=== PATIENT | female | born 1940 | race Caucasian/White ===

== ENCOUNTER → 2018-12-19 | Outpatient (CLI) | payer MEDICARE | END | disposition home or self-care (01) | LOC: RAD 13:30 | DX: Z78.0 Asymptomatic menopausal state (principal); Z90.710 Acquired absence of both cervix and uterus ==

== ENCOUNTER → 2019-04-04 | Day surgery (SDC) | payer MEDICARE ==
[~2019-04-04] VITALS: Ht 154.9 cm; Wt 77.1 kg
[~2019-04-04] MED LIST: ALDACTONE25 MG PO; AMITRIPTYLINE25 MG PO; ATENOLOL25 MG PO; DICYCLOMINE HCL10 MG PO; FLAXSEED1000 MG PO; LEVOTHYROXINE50 MCG PO; LOVASTATIN20 MG PO; MAGNESIUM400 MG PO; OMEPRAZOLE D/R20 MG PO; PROAIR HFA8.5 GM INH; VITAMIN B12-FO1 EACH PO
--- NOTE | ~2019-04-04 | O ---
[place], [place] OPERATIVE NOTE NAME: [id number] UNIT #: [id number] ROOM: DOCTOR: CECILIA ROMERO MD BIRTHDATE: [birth year] DOS: 04/04/2019 GASTROENDOSCOPIC REPORT INDICATIONS: A 78-year-old patient who has presented with chief complaint of abdominal pain, history of colonic polyp. ALLERGIES: CODEINE AND NITROGLYCERIN. PAST MEDICAL HISTORY: Hypercholesterolemia, hypertension. PAST SURGICAL HISTORY: Cholecystectomy, hysterectomy, shoulder, and knee. PROCEDURE: Today's procedure part of investigation is colonoscopy plus piecemeal polypectomy. PREMEDICATION: Propofol. SCOPE: Olympus forward-viewing colonoscope 10L video. REPORT: After putting the patient in left lateral position and application of lubricant to the scope, the scope was introduced. Thereafter, under direct visualization, advanced through the length of colon without difficulty. Evidence of diverticulosis was severe degree, particularly of sigmoid colon appreciated. Base of the cecum explored, appendiceal orifice identified, and ileocecal valve defined. Sessile polypoid lesion at sigmoid colon with piecemeal polypectomy removed. Air was suctioned out. The patient was extubated, tolerated the procedure well. IMPRESSION: Severe diverticulosis, sigmoid colon, sessile colonic polyp, sigmoid colon. PLAN: High fiber diet. ACTIVITY: Ad wicho. FOLLOWUP: As outpatient. Thank you very much indeed. [place], [place] OPERATIVE NOTE NAME: JACKI PATRICK UNIT #: [id number] ROOM: DOCTOR: CECILIA ROMERO MD BIRTHDATE: [birth year] CECILIA ROMERO MD CM:OPRECORD:OPERATIVE NOTE 1018 [id number] CECILIA ROMERO MD 04/04/19 1219 interface
[2019-04-04 09:21] VITALS: BP 156/63
[2019-04-04 10:16] VITALS: BP 136/67
[2019-04-04 10:31] VITALS: BP 130/60
[2019-04-04 10:46] VITALS: BP 139/72
== END | disposition home or self-care (01) ==
LOC: SDC 03-30 12:30
DX: D12.5 Benign neoplasm of sigmoid colon (principal); K57.30 Diverticulosis of large intestine without perforation or abscess without bleeding; E78.00 Pure hypercholesterolemia, unspecified; I10 Essential (primary) hypertension; J45.909 Unspecified asthma, uncomplicated; K21.9 Gastro-esophageal reflux disease without esophagitis; K44.9 Diaphragmatic hernia without obstruction or gangrene; I25.10 Atherosclerotic heart disease of native coronary artery without angina pectoris; E66.9 Obesity, unspecified; Z68.32 Body mass index [BMI] 32.0-32.9, adult; Z88.5 Allergy status to narcotic agent; Z88.8 Allergy status to other drugs, medicaments and biological substances; Z79.899 Other long term (current) drug therapy; Z90.49 Acquired absence of other specified parts of digestive tract; Z90.710 Acquired absence of both cervix and uterus; Z98.890 Other specified postprocedural states; Z86.010 Personal history of colon polyps; Z82.49 Family history of ischemic heart disease and other diseases of the circulatory system

== ENCOUNTER → 2019-11-09 | Outpatient (CLI) | payer MEDICARE ==
[~2019-11-09] MED LIST changes: +BUDESONIDE0.5 MG/2 M INH; +Ipratropium Brom3 ML INH
== END | disposition home or self-care (01) ==
LOC: LAB 11-08 13:34
DX: R05 Cough (principal)

== ENCOUNTER → 2022-03-02 | Outpatient (CLI) | payer MEDICARE | END | disposition home or self-care (01) | LOC: RESCLI 14:10 | PROVIDERS: ATTEND Internal Medicine | DX: J45.909 Unspecified asthma, uncomplicated (principal); M54.9 Dorsalgia, unspecified; E78.00 Pure hypercholesterolemia, unspecified; I10 Essential (primary) hypertension; E78.5 Hyperlipidemia, unspecified; E03.9 Hypothyroidism, unspecified; Z90.710 Acquired absence of both cervix and uterus; Z79.899 Other long term (current) drug therapy; Z88.8 Allergy status to other drugs, medicaments and biological substances ==

== ENCOUNTER → 2022-03-29 | Outpatient (CLI) | payer MEDICARE | END | disposition home or self-care (01) | LOC: LAB 15:03 | PROVIDERS: ATTEND Internal Medicine | DX: D35.00 Benign neoplasm of unspecified adrenal gland (principal); E78.5 Hyperlipidemia, unspecified; E55.9 Vitamin D deficiency, unspecified ==

== ENCOUNTER 2022-06-22 15:08 | Emergency (ER) | payer MEDICARE ==
[~2022-06-22] VITALS: Wt 77.1 kg
[2022-06-22 17:43] LABS: BASO % 0.1 % (0.0-1.0); EOS % 0.3 % (1.0-4.0); HEMATOCRIT 41.3 % (37.0-47.0); LYMPH # 3.3 10*3/uL (1.3-4.4); LYMPH % 37.2 % (27.0-41.0); MEAN CELL VOLUME 95.2 fl (81.0-99.0); MEAN CORPUSCULAR HGB 30.6 pg (27.0-31.0); MEAN CORPUSCULAR HGB CONC 32.2 g/dl (33.0-37.0); MONO # 0.9 10*3/uL (0.1-1.0); MONO % 9.7 % (3.0-9.0); NEUT # 4.7 10*3/uL (2.3-7.9); NEUT % 52.5 % (47.0-73.0); PLATELET COUNT AUTOMATED 431 10*3/uL (130-400); RED BLOOD COUNT 4.34 10*6/uL (4.10-5.10); RED CELL DISTRI WIDTH 14.3 % (0-14.5); WHITE BLOOD COUNT 8.9 10*3/uL (4.8-10.8)
[2022-06-22 17:55] LABS: ACT PARTIAL THROMBO TIME 22.8 SECONDS (20.0-32.1); INTERNATIONAL NORM RATIO 0.9 (2.0-3.5)
[2022-06-22 18:07] LABS: ALKALINE PHOSPHATASE 95 U/L (46-116); BUN 9 mg/dl (9-23); CHLORIDE 99 mmol/L (98-107); CREATININE 0.76 mg/dL (0.55-1.02); LIPASE 26 U/L (12-53); SGPT/ALT 22 U/L (10-49); SODIUM 135 mmol/L (136-145)
[2022-06-22 18:08] LABS: TOTAL PROTEIN 6.6 gm/dL (6.0-8.0)
[2022-06-22 18:14] VITALS: BP 136/86
[2022-06-22 18:23] LABS: BILIRUBIN Negative (Negative); BLOOD Negative (Negative); CLARITY Clear (Clear); COLOR Yellow (Yellow); GLUCOSE Negative (Negative); KETONE Negative (Negative); LEUKO ESTERASE Trace (Negative); NITRITE Negative (Negative); PH 7.5 (4.5-8.0); SPECIFIC GRAVITY <= 1.005 (1.001-1.030); UROBILINOGEN 0.2 E.U./dl (0.0-1.0)
[2022-06-22 19:32] LABS: RBC 0-2 rbc/hpf (0-2)
[2022-06-22] MEDS ORDERED: VIBRAMYCIN100 MG PO ×2 (21:04→21:11)
== END 2022-06-22 22:13 | disposition home or self-care (01) ==
LOC: ED 15:08
PROVIDERS: Physician Assistant
DX: R06.02 Shortness of breath (principal); Z88.8 Allergy status to other drugs, medicaments and biological substances; Z79.899 Other long term (current) drug therapy; Z98.890 Other specified postprocedural states; Z98.51 Tubal ligation status; Z90.710 Acquired absence of both cervix and uterus

== ENCOUNTER → 2023-02-16 | Outpatient (CLI) | payer MEDICARE ==
[~2023-02-16] MED LIST changes: +VIBRAMYCIN100 MG PO
== END | disposition home or self-care (01) ==
LOC: RESCLI 13:52
PROVIDERS: ATTEND Internal Medicine
DX: J45.909 Unspecified asthma, uncomplicated (principal); E78.5 Hyperlipidemia, unspecified; K58.9 Irritable bowel syndrome, unspecified; I10 Essential (primary) hypertension; G62.9 Polyneuropathy, unspecified; K21.9 Gastro-esophageal reflux disease without esophagitis; K59.00 Constipation, unspecified; E55.9 Vitamin D deficiency, unspecified; E03.9 Hypothyroidism, unspecified; Z98.890 Other specified postprocedural states; Z88.5 Allergy status to narcotic agent; Z88.2 Allergy status to sulfonamides; Z88.8 Allergy status to other drugs, medicaments and biological substances; Z79.899 Other long term (current) drug therapy

== ENCOUNTER 2023-07-23 10:40 | Emergency (ER) | payer MEDICARE ==
[~2023-07-23] VITALS: Ht 154.9 cm; Wt 77.1 kg
[~2023-07-23 10:40] MED LIST changes: -OMEPRAZOLE D/R20 MG PO; +PROTONIX20 MG PO
[2023-07-23 12:10] VITALS: BP 170/65
[2023-07-23 12:22] LABS: BASO % 0.3 % (0.0-1.0); EOS # 0.1 10*3/uL (0.0-0.4); EOS % 1.2 % (1.0-4.0); HEMATOCRIT 40.6 % (37.0-47.0); LYMPH % 21.3 % (27.0-41.0); MEAN CELL VOLUME 94.2 fl (81.0-99.0); MEAN CORPUSCULAR HGB 29.9 pg (27.0-31.0); MEAN CORPUSCULAR HGB CONC 31.8 g/dl (33.0-37.0); MONO # 0.8 10*3/uL (0.1-1.0); MONO % 8.3 % (3.0-9.0); NEUT # 6.6 10*3/uL (2.3-7.9); NEUT % 68.7 % (47.0-73.0); PLATELET COUNT AUTOMATED 386 10*3/uL (130-400); RED BLOOD COUNT 4.31 10*6/uL (4.10-5.10); RED CELL DISTRI WIDTH 14.6 % (0-14.5); WHITE BLOOD COUNT 9.6 10*3/uL (4.8-10.8)
[2023-07-23 12:42] LABS: ALKALINE PHOSPHATASE 175 U/L (46-116); BUN 9 mg/dl (9-23); CHLORIDE 103 mmol/L (98-107); POTASSIUM 4.2 mmol/L (3.4-5.1); SGPT/ALT 21 U/L (5-49); TOTAL PROTEIN 6.9 gm/dL (6.0-8.0)
[2023-07-23] MEDS ORDERED: TAMIFLU 75MG CA75 MG PO (13:00)
[2023-07-23] MEDS ORDERED: DEXAMETHASONE6 MG PO (13:00)
== END 2023-07-23 13:16 | disposition home or self-care (01) ==
LOC: ED 10:40
PROVIDERS: Emergency Medicine
DX: U07.1 COVID-19 (principal); J10.1 Influenza due to other identified influenza virus with other respiratory manifestations; K21.9 Gastro-esophageal reflux disease without esophagitis; E78.00 Pure hypercholesterolemia, unspecified; M19.90 Unspecified osteoarthritis, unspecified site; Z88.2 Allergy status to sulfonamides; Z88.8 Allergy status to other drugs, medicaments and biological substances; Z88.5 Allergy status to narcotic agent; Z98.890 Other specified postprocedural states; Z95.5 Presence of coronary angioplasty implant and graft; Z90.710 Acquired absence of both cervix and uterus; Z98.51 Tubal ligation status

== ENCOUNTER → 2024-02-25 | Outpatient (CLI) | payer MEDICARE ==
[~2024-02-25] MED LIST changes: +DEXAMETHASONE6 MG PO; +TAMIFLU 75MG CA75 MG PO
[2024-02-25 11:01] LABS: BASO # 0.1 10*3/uL (0.0-0.1); BASO % 0.8 % (0.0-1.0); EOS # 0.5 10*3/uL (0.0-0.4); EOS % 7.6 % (1.0-4.0); HEMATOCRIT 37.8 % (37.0-47.0); LYMPH # 2.6 10*3/uL (1.3-4.4); LYMPH % 36.5 % (27.0-41.0); MEAN CELL VOLUME 95.2 fl (81.0-99.0); MEAN CORPUSCULAR HGB 30.7 pg (27.0-31.0); MEAN CORPUSCULAR HGB CONC 32.3 g/dl (33.0-37.0); MEAN PLATELET VOLUME 9.6 fl (9.6-12.3); MONO # 0.7 10*3/uL (0.1-1.0); MONO % 9.6 % (3.0-9.0); NEUT # 3.2 10*3/uL (2.3-7.9); NEUT % 45.2 % (47.0-73.0); PLATELET COUNT AUTOMATED 408 10*3/uL (130-400); RED BLOOD COUNT 3.97 10*6/uL (4.10-5.10); RED CELL DISTRI WIDTH 14.1 % (0-14.5); WHITE BLOOD COUNT 7.1 10*3/uL (4.8-10.8)
[2024-02-25 11:37] LABS: ALKALINE PHOSPHATASE 106 U/L (46-116); BUN 11 mg/dl (9-23); CHLORIDE 104 mmol/L (98-107); CHOLESTEROL 170 mg/dL (<200); LDL CHOLESTEROL 95 mg/dL (9-159); POTASSIUM 4.1 mmol/L (3.4-5.1); SGPT/ALT 11 U/L (5-49); TOTAL PROTEIN 6.6 gm/dL (6.0-8.0); TRIGLYCERIDES 104 mg/dl (<150)
== END | disposition home or self-care (01) ==
LOC: LAB 10:15
PROVIDERS: ATTEND Family Medicine
DX: R73.01 Impaired fasting glucose (principal); I10 Essential (primary) hypertension; E78.5 Hyperlipidemia, unspecified; E03.9 Hypothyroidism, unspecified

== ENCOUNTER → 2024-03-02 | Outpatient (CLI) | payer MEDICARE | END | disposition home or self-care (01) | LOC: RESCLI 16:20 | PROVIDERS: ATTEND Internal Medicine | DX: K58.9 Irritable bowel syndrome, unspecified (principal); E03.9 Hypothyroidism, unspecified; K21.9 Gastro-esophageal reflux disease without esophagitis; I10 Essential (primary) hypertension; E78.5 Hyperlipidemia, unspecified; J44.9 Chronic obstructive pulmonary disease, unspecified; Z98.890 Other specified postprocedural states; Z90.710 Acquired absence of both cervix and uterus; Z86.16 Personal history of COVID-19; Z88.8 Allergy status to other drugs, medicaments and biological substances; Z88.5 Allergy status to narcotic agent; Z88.2 Allergy status to sulfonamides; Z79.899 Other long term (current) drug therapy ==

== ENCOUNTER → 2024-05-30 | Outpatient (CLI) | payer MEDICARE ==
[2024-05-30 16:31] LABS: BASO % 0.4 % (0.0-1.0); BILIRUBIN Negative (Negative); BLOOD Negative (Negative); CLARITY Cloudy (Clear); COLOR Yellow (Yellow); EOS # 0.1 10*3/uL (0.0-0.4); EOS % 1.1 % (1.0-4.0); GLUCOSE Negative (Negative); HEMATOCRIT 39.7 % (37.0-47.0); KETONE Negative (Negative); LEUKO ESTERASE 2+ (Negative); MEAN CELL VOLUME 93.2 fl (81.0-99.0); MEAN CORPUSCULAR HGB CONC 32.2 g/dl (33.0-37.0); MEAN PLATELET VOLUME 8.8 fl (9.6-12.3); MONO # 0.8 10*3/uL (0.1-1.0); MONO % 8.2 % (3.0-9.0); NEUT # 5.5 10*3/uL (2.3-7.9); NITRITE Negative (Negative); PH 5.5 (4.5-8.0); PLATELET COUNT AUTOMATED 457 10*3/uL (130-400); RED BLOOD COUNT 4.26 10*6/uL (4.10-5.10); RED CELL DISTRI WIDTH 14.5 % (0-14.5); UROBILINOGEN 0.2 E.U./dl (0.0-1.0)
[2024-05-30 16:39] LABS: BACTERIA 1+; RBC 0-2 rbc/hpf (0-2); WBC 21-30 wbc/hpf (0-5)
[2024-05-30 16:53] LABS: ALKALINE PHOSPHATASE 118 U/L (46-116); BUN 13 mg/dl (9-23); CHLORIDE 101 mmol/L (98-107); SGPT/ALT 14 U/L (5-49); TOTAL PROTEIN 7.3 gm/dL (6.0-8.0)
== END | disposition home or self-care (01) ==
LOC: LAB 16:06
PROVIDERS: ATTEND Nurse Practitioner Family
DX: I49.1 Atrial premature depolarization (principal); R53.1 Weakness; R05.1 Acute cough; R06.02 Shortness of breath; J98.4 Other disorders of lung; M47.814 Spondylosis without myelopathy or radiculopathy, thoracic region

== ENCOUNTER → 2024-06-02 | Outpatient (CLI) | payer MEDICARE | END | disposition home or self-care (01) | LOC: CT 01:03 | PROVIDERS: ATTEND Nurse Practitioner Family | DX: R06.02 Shortness of breath (principal); E27.8 Other specified disorders of adrenal gland; J10.1 Influenza due to other identified influenza virus with other respiratory manifestations; R59.0 Localized enlarged lymph nodes ==

== ENCOUNTER → 2024-09-21 | Outpatient (CLI) | payer MEDICARE ==
[~2024-09-21] MED LIST changes: +CEPHALEXIN500 M1 PO; +OMEPRAZOLE MAGN20 MG PO; +PEPCID20 MG PO
[2024-09-21 10:30] LABS: BASO % 0.4 % (0.0-1.0); EOS # 0.1 10*3/uL (0.0-0.4); HEMATOCRIT 38.4 % (37.0-47.0); MEAN CELL VOLUME 94.1 fl (81.0-99.0); MEAN CORPUSCULAR HGB 30.6 pg (27.0-31.0); MEAN CORPUSCULAR HGB CONC 32.6 g/dl (33.0-37.0); MONO # 0.7 10*3/uL (0.1-1.0); MONO % 9.7 % (3.0-9.0); NEUT # 3.2 10*3/uL (2.3-7.9); NEUT % 45.7 % (47.0-73.0); PLATELET COUNT AUTOMATED 392 10*3/uL (130-400); RED BLOOD COUNT 4.08 10*6/uL (4.10-5.10); RED CELL DISTRI WIDTH 14.4 % (0-14.5)
[2024-09-21 10:56] LABS: ALKALINE PHOSPHATASE 115 U/L (46-116); BUN 9 mg/dl (9-23); CHLORIDE 102 mmol/L (98-107); CHOLESTEROL 190 mg/dL (<200); LDL CHOLESTEROL 107 mg/dL (9-159); POTASSIUM 4.2 mmol/L (3.4-5.1); SGPT/ALT 15 U/L (5-49); TOTAL PROTEIN 6.8 gm/dL (6.0-8.0); TRIGLYCERIDES 98 mg/dl (<150)
== END | disposition home or self-care (01) ==
LOC: LAB 10:11
PROVIDERS: ATTEND Family Medicine
DX: I10 Essential (primary) hypertension (principal); R73.01 Impaired fasting glucose; E78.5 Hyperlipidemia, unspecified; E55.9 Vitamin D deficiency, unspecified; E03.9 Hypothyroidism, unspecified

== ENCOUNTER 2024-10-30 15:54 | Observation (INO) | payer MEDICARE ==
[~2024-10-30] VITALS: Ht 154.9 cm; Wt 71.7 kg
[2024-10-30 16:19] VITALS: BP 179/79
[2024-10-30 16:57] LABS: BASO % 0.5 % (0.0-1.0); EOS # 0.1 10*3/uL (0.0-0.4); EOS % 1.3 % (1.0-4.0); HEMATOCRIT 39.9 % (37.0-47.0); MEAN CELL VOLUME 94.1 fl (81.0-99.0); MEAN CORPUSCULAR HGB 30.9 pg (27.0-31.0); MEAN CORPUSCULAR HGB CONC 32.8 g/dl (33.0-37.0); MONO # 0.8 10*3/uL (0.1-1.0); NEUT % 47.6 % (47.0-73.0); PLATELET COUNT AUTOMATED 417 10*3/uL (130-400); RED BLOOD COUNT 4.24 10*6/uL (4.10-5.10); RED CELL DISTRI WIDTH 14.2 % (0-14.5); WHITE BLOOD COUNT 8.4 10*3/uL (4.8-10.8)
[2024-10-30 17:08] LABS: ACT PARTIAL THROMBO TIME 25.3 SECONDS (20.0-32.1)
[2024-10-30 17:14] LABS: ALKALINE PHOSPHATASE 94 U/L (46-116); BUN 13 mg/dl (9-23); CHLORIDE 100 mmol/L (98-107); POTASSIUM 4.1 mmol/L (3.4-5.1); SGPT/ALT 14 U/L (5-49); TOTAL PROTEIN 6.7 gm/dL (6.0-8.0)
[2024-10-30 17:26] VITALS: BP 178/58
[2024-10-30 18:03] VITALS: BP 181/65
[2024-10-30 18:05] VITALS: BP 175/58
[2024-10-30] MEDS ORDERED: ASMANEX HFA13 G1 INH (18:22)
[2024-10-30] MEDS ORDERED: DULCOLAX STOOL100 M1 PO (18:23)
[2024-10-30] MEDS ORDERED: fentaNYL CITRATE 100 MCG/2 ML VIAL IV ONE (18:45)
[2024-10-30 19:48] VITALS: BP 176/65
[2024-10-30] MEDS ORDERED: IOHEXOL 350 MG/ML 100 ML VIAL IV ONE ×2 (20:45→21:04)
[2024-10-30] MEDS ORDERED: SODIUM CHLORIDE 0.9% 100 ML BAG IV ONE (20:45)
[2024-10-30] MEDS ORDERED: ACETAMINOPHEN 325 MG TAB PO PRN (20:50)
[2024-10-30] MEDS ORDERED: BISACODYL 5 MG TAB PO PRN (20:50)
[2024-10-30] MEDS ORDERED: ACETAMINOPHEN 650 MG SUPP R PRN (20:50)
[2024-10-30] MEDS ORDERED: BISACODYL 10 MG SUPP R PRN (20:50)
[2024-10-30] MEDS ORDERED: Magnesium Hydroxide 30 ML UDC PO PRN (20:50)
[2024-10-30] MEDS ORDERED: Ondansetron Hydrochloride 4 MG/2 ML VIAL IV PRN (20:50)
[2024-10-30] MEDS ORDERED: ASPIRIN 325 MG ENTERIC COATED PO ONE (21:00)
[2024-10-30] MEDS ORDERED: SODIUM CHLORIDE 0.9% 100 ML IV ONE (21:05)
[2024-10-30] MEDS ORDERED: SIMVASTATIN 20 MG TAB PO SCH (22:00)
[2024-10-30] MEDS ORDERED: Amitriptyline Hydrochloride 25 MG TAB PO SCH (22:00)
[2024-10-31] VITALS (7 sets, daily range): BP systolic 137–179; BP diastolic 43–82
[2024-10-31] MEDS ORDERED: Levothyroxine Sodium 50 MCG TAB PO SCH (06:00)
[2024-10-31 06:14] LABS: BASO % 0.5 % (0.0-1.0); EOS # 0.2 10*3/uL (0.0-0.4); EOS % 1.8 % (1.0-4.0); HEMATOCRIT 37.8 % (37.0-47.0); MEAN CELL VOLUME 93.6 fl (81.0-99.0); MEAN CORPUSCULAR HGB 30.4 pg (27.0-31.0); MEAN CORPUSCULAR HGB CONC 32.5 g/dl (33.0-37.0); MEAN PLATELET VOLUME 9.3 fl (9.6-12.3); MONO # 0.9 10*3/uL (0.1-1.0); MONO % 11.1 % (3.0-9.0); NEUT # 4.1 10*3/uL (2.3-7.9); PLATELET COUNT AUTOMATED 384 10*3/uL (130-400); RED BLOOD COUNT 4.04 10*6/uL (4.10-5.10); RED CELL DISTRI WIDTH 14.3 % (0-14.5); WHITE BLOOD COUNT 8.5 10*3/uL (4.8-10.8)
[2024-10-31 06:20] LABS: ACT PARTIAL THROMBO TIME 25.2 SECONDS (20.0-32.1)
[2024-10-31] MEDS ORDERED: Regadenoson 0.4 MG/5 ML SYR IV ONE (06:34)
[2024-10-31] MEDS ORDERED: Pantoprazole Sodium 20 MG TAB PO SCH (07:30)
[2024-10-31 07:51] LABS: ALKALINE PHOSPHATASE 86 U/L (46-116); BUN 10 mg/dl (9-23); CHLORIDE 101 mmol/L (98-107); CHOLESTEROL 174 mg/dL (<200); FREE T4 1.32 ng/dl (0.89-1.76); LDL CHOLESTEROL 97 mg/dL (9-159); POTASSIUM 4.1 mmol/L (3.4-5.1); SGPT/ALT 13 U/L (5-49); TRIGLYCERIDES 119 mg/dl (<150)
[2024-10-31 07:57] LABS: VITAMIN D, 25-HYDROXY 81.9 ng/mL (30-100)
[2024-10-31] MEDS ORDERED: ATENOLOL 25 MG TAB PO SCH (10:00)
[2024-10-31] MEDS ORDERED: ASPIRIN ENTERIC COATED 81 MG TAB PO SCH (10:00)
[2024-10-31] MEDS ORDERED: Enoxaparin Sodium 40 MG/0.4 ML SYR SC SCH (10:00)
[2024-11-01] VITALS: BP 155/49
[2024-11-01 08:00] VITALS: BP 179/56
[2024-11-01] MEDS ORDERED: BISACODYL 5 MG TAB PO ONE (08:30)
[2024-11-01] MEDS ORDERED: ATENOLOL25 MG PO (10:30)
[2024-11-01] MEDS ORDERED: ASPIRIN ADULT L81 M2 PO (10:30)
[2024-11-01] MEDS ORDERED: PROTONIX40 MG PO (10:31)
== END 2024-11-01 13:06 | disposition home or self-care (01) ==
LOC: ED 15:54 → EDHOLD 18:43 → 5E 10-31 15:00
PROVIDERS: Internal Medicine; Student in an Organized Health Care Education/Training Program; ADMIT Internal Medicine; ATTEND Internal Medicine
DX: R07.89 Other chest pain (principal); I10 Essential (primary) hypertension; R00.1 Bradycardia, unspecified; K29.70 Gastritis, unspecified, without bleeding; K58.9 Irritable bowel syndrome, unspecified; E03.9 Hypothyroidism, unspecified; K44.9 Diaphragmatic hernia without obstruction or gangrene; J42 Unspecified chronic bronchitis; J45.909 Unspecified asthma, uncomplicated; D75.839 Thrombocytosis, unspecified; Z79.899 Other long term (current) drug therapy

== ENCOUNTER → 2024-12-31 | Outpatient (CLI) | payer MEDICARE ==
[~2024-12-31] MED LIST changes: +ASMANEX HFA13 G1 INH; +ASPIRIN ADULT L81 M2 PO; +DULCOLAX STOOL100 M1 PO; +PROTONIX40 MG PO
== END | disposition home or self-care (01) ==
LOC: RAD 17:31
PROVIDERS: ATTEND Family Medicine
DX: S16.1XXA Strain of muscle, fascia and tendon at neck level, initial encounter (principal); M47.812 Spondylosis without myelopathy or radiculopathy, cervical region; M48.02 Spinal stenosis, cervical region; X58.XXXA Exposure to other specified factors, initial encounter; Y93.89 Activity, other specified; Y92.89 Other specified places as the place of occurrence of the external cause; Y99.8 Other external cause status

== ENCOUNTER → 2025-03-12 | Outpatient (CLI) | payer MEDICARE ==
[2025-03-12 10:36] LABS: BASO # 0.0 10*3/uL (0.0-0.1); BASO % 0.4 % (0.0-1.0); EOS # 0.1 10*3/uL (0.0-0.4); EOS % 1.4 % (1.0-4.0); MEAN CELL VOLUME 93.5 fl (81.0-99.0); MEAN CORPUSCULAR HGB 30.2 pg (27.0-31.0); MEAN PLATELET VOLUME 8.8 fl (9.6-12.3); MONO # 0.6 10*3/uL (0.1-1.0); MONO % 8.3 % (3.0-9.0); NEUT # 3.8 10*3/uL (2.3-7.9); NEUT % 54.3 % (47.0-73.0); NUCLEATED RED BLOOD CELL 0.0 % (0.0-0.0); NUCLEATED RED BLOOD CELL 0.0 10*3/uL (0.0-0.0); PLATELET COUNT AUTOMATED 440 10*3/uL (130-400); RED CELL DISTRI WIDTH 14.4 % (0-14.5)
[2025-03-12 10:42] LABS: BILIRUBIN Negative (Negative); BLOOD Negative (Negative); CLARITY Clear (Clear); COLOR Yellow (Yellow); KETONE Negative (Negative); LEUKO ESTERASE 2+ (Negative); NITRITE Negative (Negative); PH 7.5 (4.5-8.0); SPECIFIC GRAVITY 1.010 (1.001-1.030); UROBILINOGEN 0.2 E.U./dl (0.0-1.0)
[2025-03-12 11:04] LABS: BACTERIA 1+; EPITHELIAL CELLS 16-20; WBC 21-30 wbc/hpf (0-5)
[2025-03-12 11:57] LABS: BUN 10 mg/dl (9-23); LDL CHOLESTEROL 93 mg/dL (9-159); SGPT/ALT 12 U/L (5-49)
[2025-03-12 11:58] LABS: VITAMIN D, 25-HYDROXY 87.5 ng/mL (30-100)
== END ==
LOC: LAB 10:08
PROVIDERS: ATTEND Family Medicine
DX: I10 Essential (primary) hypertension (principal); E78.5 Hyperlipidemia, unspecified; E03.9 Hypothyroidism, unspecified; E53.8 Deficiency of other specified B group vitamins; R30.0 Dysuria; R73.01 Impaired fasting glucose; E55.9 Vitamin D deficiency, unspecified; D50.9 Iron deficiency anemia, unspecified